=== PATIENT | female | born 1970 | race Caucasian/White ===

== ENCOUNTER 2019-01-12 07:20 | Day surgery (SDC) | payer OTHER ==
[~2019-01-12 07:20] MED LIST: ATARAX 25 MG TA25 MG PO; EFFEXOR75 MG PO; ESTRACE1 MG PO; FLUTICASONE PRO16 GM NASAL; GLUCOPHAGE500 MG PO; LEVEMIR IN100 UNITS/ SC; LEVOXYL100 MCG PO; NEURONTIN600 MG PO; TOPAMAX50 MG PO; TOPROL XL25 MG PO; ZANAFLEX4 MG PO
[2019-01-12 07:51] LABS: ANION GAP 11.9 mmol/L (8-16); CALCIUM 8.9 mg/dL (8.5-10.1); CARBON DIOXIDE 27.9 mmol/L (21.0-32.0); CREATININE - SERUM 1.8 mg/dL (0.6-1.3); HEMATOCRIT 33.8 % (36.0-48.0); HEMOGLOBIN 11.3 g/dL (12-16); MCH 29.8 pg (26.0-34.0); MCHC 33.4 g/dL (31.0-37.0); MCV 89.2 fL (80.0-100.0); POTASSIUM - SERUM 4.8 mmol/L (3.5-5.1); RBC 3.79 10x6/uL (4.00-5.40); WBC 6.4 10x3/uL (4.8-10.8)
[2019-01-12 08:44] VITALS: BP 171/90; BMI 30.3
--- NOTE | 2019-01-12 08:46 | NUR ---
0824 PRERNA RAMACHANDRAN CRNA NOTIFIED OF BS OF 358 AND THAT A 500CC BOLUS OF NS IS INFUSING CURRENTLY. NO FURTHER ORDERS RECEIVED. WILL RECHECK BS AND NOTIFY ANESTHESIA OF NEXT BS.
--- NOTE | 2019-01-12 11:59 | NUR ---
MARTINE FRAME FOR POSITIONING FOAM UNDER ARMS AND IN AXILLA
--- NOTE | 2019-01-12 15:00 | NUR ---
POST OP VSS. 97.4,67,16,135/73,96% ON ROOM AIR.
--- NOTE | 2019-01-12 15:18 | NUR ---
ASSESSMENT PER FLOW SHEET. PT TO ROOM 9495 ORIENTATION TO ROOM. SCD'S IN PLACE. DRESSING TO LUMBAR REGION CLEAN,DRY AND INTACT.CALL LIGHT IN REACH.
[2019-01-12 15:22] VITALS: BP 135/73; BMI 30.3
--- NOTE | 2019-01-12 19:20 | NUR ---
ALERT AND ORIE
[2019-01-12 20:49] VITALS: BP 131/68
[2019-01-13 02:08] VITALS: BP 124/50
[2019-01-13 04:49] VITALS: BP 118/60
--- NOTE | 2019-01-13 05:32 | NUR ---
I have reviewed this patient and I concur with the Shift Assessment completed by the Licensed Practical Nurse today this shift.
--- NOTE | 2019-01-13 07:42 | NUR ---
PT RESTING IN BED. DENIES ANY NEEDS. NO S/S OF ACUTE DISTRESS. FAMILY AT BEDSIDE. CL IN PLACE.
[2019-01-13] MEDS ORDERED: HYDROCODON-ACE1 EA10 PO (09:38)
[2019-01-13 09:39] VITALS: BP 126/55
[2019-01-13 11:01] VITALS: BMI 30.2
--- NOTE | 2019-01-13 11:37 | NUR ---
DC INSTRUCTIONS AND EDUCATION GIVEN TO PT. DC IV WITH TIP INTACT.TOOK PT DOWN TO FRONT LOBBY VIA WC. 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 NO S/S OF ACUTE DISTRESS.
--- NOTE | 2019-02-09 10:35 | OP ---
PATIENT NAME: BERNIE GOLDBERG MEDICAL RECORD: [id number] :66 LOCATION:[facility] ADMISSION DATE: SURGEON: ANTHONY EVANS MD DATE OF OPERATION: 01/12/2019 DATE OF SERVICE: 01/12/2019 PROCEDURES: Lumbar laminotomy, medial facetectomy and foraminotomy with sublaminar decompression at L4-L5 on the right. SURGEON: Anthony Evans MD DESCRIPTION AND TECHNIQUE: After induction of general endotracheal anesthesia, the patient was rolled prone on the Miguel frame. Lumbar spine was prepped and draped in the usual sterile fashion. Fluoroscopic x-ray and spinal needle localized the L4-L5 interspace on the right side. After infiltration with 1:100,000 epinephrine with 1% lidocaine, a stab incision was created with a #11 blade. A series of dilators was used to advance a METRx retractor at the L4-L5 interspace on the right side. The level was confirmed with fluoroscopic x-ray. A microscope and Midas Jose drill were used to perform a laminotomy, medial facetectomy and foraminotomy at L4-L5 on the right. Hypertrophied ligamentum flavum was removed with Cloward rongeurs. Following this, the spinous process of L4 and L5 were undermined with the Midas Jose drill. Hypertrophied ligamentum flavum was removed with Cloward rongeurs on the opposite side and a foraminotomy was carried out on the left side between L4 and L5. Meticulous hemostasis was maintained throughout the wound. The wound was irrigated with copious amounts of Ancef irrigant solution. The fascia was closed with 2-0 Vicryl suture, the subdermal layer was closed with 3-0 Vicryl suture. The skin was closed with yogesh. A sterile dressing was applied to the wound. The patient was awakened in good condition and taken to recovery. All counts were reported as correct. Estimated blood loss was minimal. TRANSINT:[id number] Voice Confirmation ID: [id number] DOCUMENT ID: [id number] ANTHONY EVANS MD at 1035 CC: [id number] DICTATION DATE: 01/16/19 0729 DEPARTMENT DIRECTOR: 01/16/19 0826 [facility] 01/13/19 [place] [address]
== END 2019-01-13 12:13 | disposition home or self-care (01) ==
LOC: D.OPS 07:20 → D.MS 07:20 → D.OPS 09:45 → D.MS 14:34 → D.OPS 01-13 12:13
PROVIDERS: Anesthesiology; ATTEND Neurological Surgery
DX: M48.061 Spinal stenosis, lumbar region without neurogenic claudication (principal); M54.16 Radiculopathy, lumbar region; M21.372 Foot drop, left foot; M21.371 Foot drop, right foot; Z01.812 Encounter for preprocedural laboratory examination

== ENCOUNTER 2019-06-08 09:12 | Day surgery (SDC) | payer OTHER ==
[~2019-06-08] VITALS: Ht 165.1 cm; Wt 83.9 kg
[~2019-06-08 09:12] MED LIST changes: +HYDROCODON-ACE1 EA10 PO
[2019-06-08 09:39] LABS: HEMOGLOBIN 11.1 g/dL (12-16); MCH 29.5 pg (26.0-34.0); MCHC 32.6 g/dL (31.0-37.0); MCV 90.4 fL (80.0-100.0); MEAN PLATELET VOLUME 9.9 fL (7.4-10.4); RBC 3.76 10x6/uL (4.00-5.40); WBC 5.4 10x3/uL (4.8-10.8)
[2019-06-08 09:46] LABS: ANION GAP 11.9 mmol/L (8-16); CARBON DIOXIDE 28.9 mmol/L (21.0-32.0); CREATININE - SERUM 1.6 mg/dL (0.6-1.3); POTASSIUM - SERUM 3.8 mmol/L (3.5-5.1)
[2019-06-08 11:04] VITALS: BP 178/93; Ht 165.1 cm; Wt 83.9 kg
--- NOTE | 2019-06-08 11:19 | NUR ---
PT STATES SHE PERFORMED A FSBS PRIOR TO ARRIVAL WHICH RESULTED 97. HER LABS UPON ARRIVING AT THE HOSPITAL RESULED A GLUCOSE LEVEL OF 76. SPOKE WITH DR. WHITNEY AND BETH IN ANESTHESIA. ANESTHESIA ORDERED LR IV FLUIDS INSTEAD OF NS.
[2019-06-08] MEDS ORDERED: HYDROCODON-ACE1 EA10 PO (15:20)
--- NOTE | 2019-06-08 17:45 | NUR ---
PATIENT AMBULATES TO BATHROOM AND VOIDS IN TOILET WITHOUT DIFFICULTY. AMBULATES WITH STAND-BY ASSIST ONLY, DENIES UNSTEADINESS OR DIZZINESS. RIGHT HAND PIV DC'D WITH TIP INTACT. DISCHARGE INSTRUCTIONS REVIEWED WITH PATIENT, PATIENT DRESSING IN PERSONAL CLOTHING
--- NOTE | 2019-06-20 20:19 | OP ---
PATIENT NAME: BERNIE GOLDBERG MEDICAL RECORD: [id number] :66 LOCATION:[facility] ADMISSION DATE: SURGEON: ANTHONY EVANS MD DATE OF OPERATION: 06/08/2019 PREOPERATIVE DIAGNOSES: Recurrent disc herniation, left L4-L5 with synovial cyst formation. POSTOPERATIVE DIAGNOSES: Recurrent disc herniation, left L4-L5 with synovial cyst formation. PROCEDURE: Redo left L4-L5 lumbar laminectomy and discectomy with resection of synovial cyst. SURGEON: Anthony Evans MD DESCRIPTION AND TECHNIQUE: After induction of general endotracheal anesthesia, the patient was rolled prone on a Miguel frame. Lumbar spine was prepped and draped in usual sterile fashion. Fluoroscopic x-ray and spinal needle localized the L4-L5 interspace on the left side. A series of dilators was used to advance a METRx retractor at L4-L5 on the left. The level was confirmed with fluoroscopic x-ray. The previous laminectomy was extended with the Midas-Jose drill under microscopic illumination. Hypertrophied ligamentum flavum as well as scar tissue was removed with Cloward rongeurs. There was an obvious synovial cyst compressing the dura on the left side at the L5 nerve root. This was removed with microdissection. Following this, left L5 nerve root was decompressed well. Meticulous hemostasis was maintained throughout the wound. The wound was irrigated with copious amounts of Ancef irrigant solution. The retractors were removed. The fascia was closed with 2-0 Vicryl suture, the subdermal layer was closed with 3-0 Vicryl suture. The skin was closed with yogesh. A sterile dressing was applied to the wound. The patient was awakened in good condition and taken to recovery. All counts were reported as correct. Estimated blood loss was minimal. TRANSINT:[id number] Voice Confirmation ID: [id number] DOCUMENT ID: [id number] ANTHONY EVANS MD at 2019 CC: [id number] DICTATION DATE: 06/15/19 1246 EARTH MOVING MACHINE OPERATOR: 06/15/19 1258 [facility] 06/08/19 [facility] [address] [place] [address]
== END 2019-06-08 18:07 | disposition home or self-care (01) ==
LOC: D.OPS 09:12 → D.PAN 09:45 → D.OPS 11:00
PROVIDERS: Anesthesiology; ATTEND Neurological Surgery
DX: M51.26 Other intervertebral disc displacement, lumbar region (principal); M71.38 Other bursal cyst, other site